=== PATIENT | male | born 1955 | race Caucasian/White ===

== ENCOUNTER 2022-05-15 20:49 | Emergency (ER) | payer MEDICARE, BC, SELFPAY ==
[2022-05-15 21:28] VITALS: BP 147/88; PULSE 92; RESP 20; TEMP 36.1; O2SAT 94; BMI 27.3
[2022-05-15 22:48] VITALS: BP 138/93; PULSE 86; RESP 20; O2SAT 94
--- NOTE | 2022-05-15 23:07 | CRLHL7_ITS ---
For Patients: As a result of the Century Cures Act, medical imaging exams and procedure reports are released immediately into your electronic medical record. You may view this report before your referring provider. If you have questions, please contact your health care provider. INDICATION: Diffuse abdominal pain TECHNIQUE: CT abdomen and pelvis acquired with 93 cc Isovue 370 IV contrast. COMPARISON: None FINDINGS: Lower chest: Mitral annular calcification. Liver: Hepatic steatosis. Spleen: Unremarkable. Pancreas: Unremarkable. Gallbladder and bile ducts: Unremarkable. Adrenal glands: Unremarkable. Kidneys: 4 mm nonobstructive right renal stone. GI tract: Unremarkable. Appendix is normal. Vascular structures: Aortoiliac calcifications. Lymph nodes: Unremarkable. Miscellaneous: Unremarkable. No free air or significant free fluid. Pelvic Organs: Unremarkable. Bones: Unremarkable for age. IMPRESSION: No acute intra-abdominal process. Hepatic steatosis. Nonobstructive right renal stone. Please note that all CT scans at this facility use dose modulation, iterative reconstruction, and/or weight-based dosing when appropriate to reduce radiation dose to as low as reasonably achievable. Dictated by Hilaria Mujica MD @ 05/16/2022 1:37:08 AM (Electronically Signed)
[2022-05-15 23:27] LABS: Basophils Absolute Auto 0.02 K/uL (0.00-0.30); Basophils Percent Auto 0.3 % (0.0-3.0); Eosinophils Absolute Auto 0.29 K/uL (0.00-0.50); Eosinophils Percent Auto 4.1 % (0.0-7.0); Hematocrit 39.4 % (37.0-53.0); Hemoglobin* 14.3 gm/dL (13.5-17.5); Lymphocytes Absolute Auto 2.43 K/uL (0.90-2.90); Lymphocytes Percent Auto 34.5 % (20-44); Mean Corpuscular HGB Conc 36 gm/dL (32-36); Mean Corpuscular Hemoglobin 33 pg (26-34); Mean Corpuscular Volume 90 fL (80-100); Monocytes Percent Auto 8.9 % (0.0-11.0); Neutrophils Absolute Auto 3.67 K/uL (1.7-7.0); Neutrophils Percent Auto 52.2 % (42.0-72.0); Platelet Count* 261 K/uL (140-440); RDW Coefficient of Variation % 12.4 % (11.5-15.5); Red Blood Count 4.37 m/uL (4.30-5.90); White Blood Count* 7.04 K/uL (4.50-11.00)
[2022-05-15 23:29] LABS: Slide Review Reflex No
[2022-05-15 23:44] LABS: Albumin* 4.3 g/dL (3.3-5.0); Chloride* 104 mmol/L (96-114)
[2022-05-15 23:45] LABS: Sodium* 138 mmol/L (135-149)
[2022-05-15 23:47] LABS: Alkaline Phosphatase* 78 U/L (40-150); Aspartate Amino Transferase* 26 U/L (12-35); Bilirubin Direct* 0.2 mg/dL (0.0-0.5); Bilirubin Total* 0.8 mg/dL (0.1-1.5); Blood Urea Nitrogen* 11 mg/dL (7-30); Carbon Dioxide* 27 mmol/L (20-32); Creatinine* 0.8 mg/dL (0.5-1.5); Estimated Glomerular Filt Rate 96 ml/min
[2022-05-15 23:48] LABS: Alanine Aminotransferase* 22 U/L (4-50); Calcium* 9.3 mg/dL (8.4-10.6); Glucose* 103 mg/dL (60-115); Lipase* 81 U/L (23-300)
[2022-05-15 23:50] LABS: C Reactive Protein* 0.6 mg/dL (0.5-1.0)
--- NOTE | 2022-05-15 23:51 | ED_ITS ---
HPI - Abdominal Pain General Chief Complaint: Abdominal Pain <Jocelynn Hall MD - Last Filed: 05/16/22 00:08> Stated Complaint: abdominal pain <Jocelynn Hall MD - Last Filed: 05/16/22 00:08> Time Seen by Provider: 05/15/22 22:30 <Jocelynn Hall MD - Last Filed: 05/16/22 00:08> Source: patient <Jocelynn Hall MD - Last Filed: 05/16/22 00:08> Mode of arrival: ambulatory <Jocelynn Hall MD - Last Filed: 05/16/22 00:08> Limitations: no limitations <Jocelynn Hall MD - Last Filed: 05/16/22 00:08> History of Present Illness HPI narrative: 66-year-old male coming in today complaining of abdominal pain which she attributes to constipation. He says he has diffuse abdominal discomfort across the entire abdomen that is mild but certainly has been bothering him for about 2 weeks. He is quite concerned because he states that he only has small pebble like bowel movements and has not had a significant bowel movement in 2 weeks time. He states he is passing less gas than usual. He has been eating less than usual also. He denies any weight loss, nausea or vomiting. There is no blood in his stool. He denies any urinary symptoms. He denies any fatigue or weakness. He states that he was seen at the [facility] 4 days ago when he was prescribed GoLYTELY. He states that he has been taking 400 mL of GoLYTELY daily and that has not changed his bowel movements at all. He then did an enema today and had no output. He is concerned about his bowels. Past medical history significant for depression, hypertension. He denies any intra-abdominal operations in the past. He does have a history of constipation, but states he has never been this bad before. <Jocelynn Hall MD - Last Filed: 05/16/22 00:08> Related Data Home Medications: Home Medications Medication Instructions Recorded Confirmed amitriptyline 50 mg tablet mg 05/15/22 amlodipine 10 mg tablet mg 05/15/22 hydrochlorothiazide 25 mg tablet mg 05/15/22 metoprolol succinate 100 mg mg PO 05/15/22 tablet,extended release 24 hr sertraline 100 mg tablet mg 05/15/22 <Jocelynn Hall MD - Last Filed: 05/16/22 00:08> Allergies/Adverse Reactions: Allergies Allergy/AdvReac Type Severity Reaction Status Date / Time amoxicillin Allergy Verified 05/16/22 00:01 <Jocelynn Hall MD - Last Filed: 05/16/22 00:08> Review of Systems Status of ROS Reports: 10 or more systems reviewed and unremarkable except as noted in History and below <Jocelynn Hall MD - Last Filed: 05/16/22 00:08> [facility] Social History: Social History Smoking Status: Never smoker Do you use any of these nicotine containing products: None Second hand tobacco smoke exposure: No How often do you have a drink containing alcohol: 2-4 times a month How many standard drinks containing alcohol do you have on a typical day: 1 or 2 How often do you have six or more drinks on one occasion: Never AUDIT-C Alcohol total score: 2 Non-prescribed substance use: denies use service: No <Jocelynn Hall MD - Last Filed: 05/16/22 00:08> Exam Narrative: Exam Narrative: Well-nourished well-developed patient in no acute distress. Alert and oriented. Answers questions appropriately. Mood and affect are appropriate. Thoughts are goal oriented and rational. No tangential or magical thinking noted. Patient speaks in full sentences without needing to catch their breath. HEENT: Normocephalic atraumatic. Pupils are equally round reactive to light. Extraocular muscles are intact. Conjunctivae are moist without any icterus noted. Moist mucous membranes. Posterior pharynx is normal. Neck is soft. Cardiovascular: Heart is regular rate and rhythm S1 and S2 are present without any murmurs. Lungs: Clear to auscultation bilaterally no wheezes rhonchi or rales are appreciated. Patient takes deep breaths without any discomfort. Abdomen: Soft and nondistended with normal bowel sounds. No guarding or re bound. He has minimal discomfort throughout. Negative Rich sign. No specific area hurts more than another. Extremities: Bilateral lower extremities are without edema. Skin: Well perfused without any obvious rashes. <Jocelynn Hall MD - Last Filed: 05/16/22 00:08> Const: Vital Signs, click to edit/add: Vital Signs - 24 hr 05/15/22 21:28 05/15/22 22:48 05/16/22 01:47 Temperature 97 F L Pulse Rate [Pulse Oximeter] 92 86 89 Respiratory Rate 20 20 16 Blood Pressure [Ri ght Upper Arm] 147/88 H 138/93 H 130/87 Pulse Oximetry 94 94 98 Oxygen Delivery Me thod Room Air Room Air Room Air <Jocelynn Hall MD - Last Filed: 05/16/22 00:08> Vital Signs, click to edit/add: Vital Signs - 24 hr 05/15/22 21:28 05/15/22 22:48 05/16/22 01:47 Temperature 97 F L Pulse Rate [Pulse Oximeter] 92 86 89 Respiratory Rate 20 20 16 Blood Pressure [Ri ght Upper Arm] 147/88 H 138/93 H 130/87 Pulse Oximetry 94 94 98 Oxygen Delivery Me thod Room Air Room Air Room Air <Adrian Galvin MD - Last Filed: 05/16/22 16:51> Course Course Hospital Course: IV was established and labs were drawn. Abdominal CT scan was ordered given the patient's nondescript discomfort. Care transferred to oncoming provider. <Jocelynn Hall MD - Last Filed: 05/16/22 00:08> Vital Signs Vital signs: Initial Vital Signs Temperature 97 F L 05/15/22 21:28 Temperature Source Temporal Artery Scan 05/15/22 21:28 Pulse Rate 92 05/15/22 21:28 Pulse Rhythm 05/15/22 21:28 Pulse Strength 3+ Normal 05/15/22 21:28 Respiratory Rate 20 05/15/22 21:28 Blood Pressure 147/88 H 05/15/22 21:28 Blood Pressure Mean 107 05/15/22 21:28 Blood Pressure Position Sitting 05/15/22 21:28 Pulse Oximetry 94 05/15/22 21:28 Oxygen Delivery Method 05/15/22 21:28 Vital Signs Temperature 97 F L 05/15/22 21:28 Pulse Rate 92 05/15/22 21:28 Respiratory Rate 20 05/15/22 21:28 Blood Pressure 147/88 H 05/15/22 21:28 Pulse Oximetry 94 05/15/22 21:28 Oxygen Delivery Method 05/15/22 21:28 Temperature 97 F L 05/15/22 21:28 Pulse Rate 89 05/16/22 01:47 Respiratory Rate 16 05/16/22 01:47 Blood Pressure 130/87 05/16/22 01:47 Pulse Oximetry 98 05/16/22 01:47 Oxygen Delivery Method 05/16/22 01:47 <Jocelynn Hall MD - Last Filed: 05/16/22 00:08> Initial Vital Signs Temperature 97 F L 05/15/22 21:28 Temperature Source Temporal Artery Scan 05/15/22 21:28 Pulse Rate 92 05/15/22 21:28 Pulse Rhythm 05/15/22 21:28 Pulse Strength 3+ Normal 05/15/22 21:28 Respiratory Rate 20 05/15/22 21:28 Blood Pressure 147/88 H 05/15/22 21:28 Blood Pressure Mean 107 05/15/22 21:28 Blood Pressure Position Sitting 05/15/22 21:28 Pulse Oximetry 94 05/15/22 21:28 Oxygen Delivery Method 05/15/22 21:28 Vital Signs Temperature 97 F L 05/15/22 21:28 Pulse Rate 92 05/15/22 21:28 Respiratory Rate 20 05/15/22 21:28 Blood Pressure 147/88 H 05/15/22 21:28 Pulse Oximetry 94 05/15/22 21:28 Oxygen Delivery Method 05/15/22 21:28 Temperature 97 F L 05/15/22 21:28 Pulse Rate 89 05/16/22 01:47 Respiratory Rate 16 05/16/22 01:47 Blood Pressure 130/87 05/16/22 01:47 Pulse Oximetry 98 05/16/22 01:47 Oxygen Delivery Method 05/16/22 01:47 <Adrian Galvin MD - Last Filed: 05/16/22 16:51> MDM - Abdominal Pain MDM Narrative Medical decision making narrative: received Mr. Santa in change of shift pending labs and abd imaging. I reviewed CT abd pelvis and can appreciate some bowel gas. Also noted is 4mm renal stone. No excessive stool matter, mass effect of inflammatory changes. labs sig for K+ 2.9 -- med effect? <Adrian Galvin MD - Last Filed: 05/16/22 16:51> Medical Records Attestation: I reviewed the patient's medical records. <Adrian Galvin MD - Last Filed: 05/16/22 16:51> Lab Data Attestation: I reviewed the patient's lab results. <Adrian Galvin MD - Last Filed: 05/16/22 16:51> Labs: Lab Results 05/15/22 05/15/22 05/15/22 Range/Units 00:08 23:18 23:18 WBC 7.04 (4.50-11.00) K/uL RBC 4.37 (4.30-5.90) m/uL Hgb 14.3 (13.5-17.5) gm/dL Hct 39.4 (37.0-53.0) % MCV 90 (80-100) fL MCH 33 (26-34) pg MCHC 36 (32-36) gm/dL RDW Coeff of Pushpa 12.4 (11.5-15.5) % Plt Count 261 (140-440) K/uL Neut % (Auto) 52.2 (42.0-72.0) % Lymph % (Auto) 34.5 (20-44) % [place] % (Auto) 8.9 (0.0-11.0) % Eos % (Auto) 4.1 (0.0-7.0) % Baso % (Auto) 0.3 (0.0-3.0) % Neut # (Auto) 3.67 (1.7-7.0) K/uL Lymph # (Auto) 2.43 (0.90-2.90) K/uL [place] # (Auto) 0.60 (0.00-0.90) K/UL Eos # (Auto) 0.29 (0.00-0.50) K/uL Baso # (Auto) 0.02 (0.00-0.30) K/uL ESR 11 (2-15) mm/hr Sodium (135-149) mmol/L Potassium (3.6-5.1) mmol/L Chloride (96-114) mmol/L Carbon Dioxide (20-32) mmol/L BUN (7-30) mg/dL Creatinine (0.5-1.5) mg/dL Estimated Creat Clear Estimated GFR ml/min Glucose (60-115) mg/dL Lactate (0.5-1.9) mmol/L Calcium (8.4-10.6) mg/dL Magnesium (1.5-2.6) mg/dL Total Bilirubin (0.1-1.5) mg/dL Direct Bilirubin (0.0-0.5) mg/dL AST (12-35) U/L ALT (4-50) U/L Alkaline Phosphatase (40-150) U/L C-Reactive Protein (0.5-1.0) mg/dL Total Protein (6.0-8.3) g/dL Albumin (3.3-5.0) g/dL Lipase (23-300) U/L TSH (0.270-4.20) uIU/mL Urine Color Yellow (Yellow) Urine Appearance Clear (Clear) Urine pH 7.0 (5.0-8.5) Ur Specific [place] 1.010 (1.000-1.030) Urine Protein Negative (Negative) Urine Glucose (UA) Negative (Negative) Urine Ketones Negative (Negative) Urine Blood Negative (Negative) Urine Nitrite Negative (Negative) Urine Bilirubin Negative (Negative) Urine Urobilinogen 0.2 (0.2-1.0) Ur Leukocyte Esterase Negative (Negative) Urine RBC 0-2 (0-2) Urine WBC 0-2 (0-5) Ur Squamous Epith Cells None (None-Few) Urine Bacteria None (None) 05/15/22 05/15/22 05/15/22 Range/Units 23:18 23:18 23:18 WBC (4.50-11.00) K/uL RBC (4.30-5.90) m/uL Hgb (13.5-17.5) gm/dL Hct (37.0-53.0) % MCV (80-100) fL MCH (26-34) pg MCHC (32-36) gm/dL RDW Coeff of Pushpa (11.5-15.5) % Plt Count (140-440) K/uL Neut % (Auto) (42.0-72.0) % Lymph % (Auto) (20-44) % [place] % (Auto) (0.0-11.0) % Eos % (Auto) (0.0-7.0) % Baso % (Auto) (0.0-3.0) % Neut # (Auto) (1.7-7.0) K/uL Lymph # (Auto) (0.90-2.90) K/uL [place] # (Auto) (0.00-0.90) K/UL Eos # (Auto) (0.00-0.50) K/uL Baso # (Auto) (0.00-0.30) K/uL ESR (2-15) mm/hr Sodium 138 (135-149) mmol/L Potassium 2.9 L* (3.6-5.1) mmol/L Chloride 104 (96-114) mmol/L Carbon Dioxide 27 (20-32) mmol/L BUN 11 (7-30) mg/dL Creatinine 0.8 (0.5-1.5) mg/dL Estimated Creat Clear 73.00 Estimated GFR 96 ml/min Glucose 103 (60-115) mg/dL Lactate 1.0 (0.5-1.9) mmol/L Calcium 9.3 (8.4-10.6) mg/dL Magnesium 2.2 (1.5-2.6) mg/dL Total Bilirubin 0.8 (0.1-1.5) mg/dL Direct Bilirubin 0.2 (0.0-0.5) mg/dL AST 26 (12-35) U/L ALT 22 (4-50) U/L Alkaline Phosphatase 78 (40-150) U/L C-Reactive Protein 0.6 (0.5-1.0) mg/dL Total Protein 7.0 (6.0-8.3) g/dL Albumin 4.3 (3.3-5.0) g/dL Lipase 81 (23-300) U/L TSH 2.150 (0.270-4.20) uIU/mL Urine Color (Yellow) Urine Appearance (Clear) Urine pH (5.0-8.5) Ur Specific [place] (1.000-1.030) Urine Protein (Negative) Urine Glucose (UA) (Negative) Urine Ketones (Negative) Urine Blood (Negative) Urine Nitrite (Negative) Urine Bilirubin (Negative) Urine Urobilinogen (0.2-1.0) Ur Leukocyte Esterase (Negative) Urine RBC (0-2) Urine WBC (0-5) Ur Squamous Epith Cells (None-Few) Urine Bacteria (None) <Jocelynn Hall MD - Last Filed: 05/16/22 00:08> Lab Results 05/15/22 05/15/22 05/15/22 Range/Units 00:08 23:18 23:18 WBC 7.04 (4.50-11.00) K/uL RBC 4.37 (4.30-5.90) m/uL Hgb 14.3 (13.5-17.5) gm/dL Hct 39.4 (37.0-53.0) % MCV 90 (80-100) fL MCH 33 (26-34) pg MCHC 36 (32-36) gm/dL RDW Coeff of Pushpa 12.4 (11.5-15.5) % Plt Count 261 (140-440) K/uL Neut % (Auto) 52.2 (42.0-72.0) % Lymph % (Auto) 34.5 (20-44) % [place] % (Auto) 8.9 (0.0-11.0) % Eos % (Auto) 4.1 (0.0-7.0) % Baso % (Auto) 0.3 (0.0-3.0) % Neut # (Auto) 3.67 (1.7-7.0) K/uL Lymph # (Auto) 2.43 (0.90-2.90) K/uL [place] # (Auto) 0.60 (0.00-0.90) K/UL Eos # (Auto) 0.29 (0.00-0.50) K/uL Baso # (Auto) 0.02 (0.00-0.30) K/uL ESR 11 (2-15) mm/hr Sodium (135-149) mmol/L Potassium (3.6-5.1) mmol/L Chloride (96-114) mmol/L Carbon Dioxide (20-32) mmol/L BUN (7-30) mg/dL Creatinine (0.5-1.5) mg/dL Estimated Creat Clear Estimated GFR ml/min Glucose (60-115) mg/dL Lactate (0.5-1.9) mmol/L Calcium (8.4-10.6) mg/dL Magnesium (1.5-2.6) mg/dL Total Bilirubin (0.1-1.5) mg/dL Direct Bilirubin (0.0-0.5) mg/dL AST (12-35) U/L ALT (4-50) U/L Alkaline Phosphatase (40-150) U/L C-Reactive Protein (0.5-1.0) mg/dL Total Protein (6.0-8.3) g/dL Albumin (3.3-5.0) g/dL Lipase (23-300) U/L TSH (0.270-4.20) uIU/mL Urine Color Yellow (Yellow) Urine Appearance Clear (Clear) Urine pH 7.0 (5.0-8.5) Ur Specific [place] 1.010 (1.000-1.030) Urine Protein Negative (Negative) Urine Glucose (UA) Negative (Negative) Urine Ketones Negative (Negative) Urine Blood Negative (Negative) Urine Nitrite Negative (Negative) Urine Bilirubin Negative (Negative) Urine Urobilinogen 0.2 (0.2-1.0) Ur Leukocyte Esterase Negative (Negative) Urine RBC 0-2 (0-2) Urine WBC 0-2 (0-5) Ur Squamous Epith Cells None (None-Few) Urine Bacteria None (None) 05/15/22 05/15/22 05/15/22 Range/Units 23:18 23:18 23:18 WBC (4.50-11.00) K/uL RBC (4.30-5.90) m/uL Hgb (13.5-17.5) gm/dL Hct (37.0-53.0) % MCV (80-100) fL MCH (26-34) pg MCHC (32-36) gm/dL RDW Coeff of Pushpa (11.5-15.5) % Plt Count (140-440) K/uL Neut % (Auto) (42.0-72.0) % Lymph % (Auto) (20-44) % [place] % (Auto) (0.0-11.0) % Eos % (Auto) (0.0-7.0) % Baso % (Auto) (0.0-3.0) % Neut # (Auto) (1.7-7.0) K/uL Lymph # (Auto) (0.90-2.90) K/uL [place] # (Auto) (0.00-0.90) K/UL Eos # (Auto) (0.00-0.50) K/uL Baso # (Auto) (0.00-0.30) K/uL ESR (2-15) mm/hr Sodium 138 (135-149) mmol/L Potassium 2.9 L* (3.6-5.1) mmol/L Chloride 104 (96-114) mmol/L Carbon Dioxide 27 (20-32) mmol/L BUN 11 (7-30) mg/dL Creatinine 0.8 (0.5-1.5) mg/dL Estimated Creat Clear 73.00 Estimated GFR 96 ml/min Glucose 103 (60-115) mg/dL Lactate 1.0 (0.5-1.9) mmol/L Calcium 9.3 (8.4-10.6) mg/dL Magnesium 2.2 (1.5-2.6) mg/dL Total Bilirubin 0.8 (0.1-1.5) mg/dL Direct Bilirubin 0.2 (0.0-0.5) mg/dL AST 26 (12-35) U/L ALT 22 (4-50) U/L Alkaline Phosphatase 78 (40-150) U/L C-Reactive Protein 0.6 (0.5-1.0) mg/dL Total Protein 7.0 (6.0-8.3) g/dL Albumin 4.3 (3.3-5.0) g/dL Lipase 81 (23-300) U/L TSH 2.150 (0.270-4.20) uIU/mL Urine Color (Yellow) Urine Appearance (Clear) Urine pH (5.0-8.5) Ur Specific [place] (1.000-1.030) Urine Protein (Negative) Urine Glucose (UA) (Negative) Urine Ketones (Negative) Urine Blood (Negative) Urine Nitrite (Negative) Urine Bilirubin (Negative) Urine Urobilinogen (0.2-1.0) Ur Leukocyte Esterase (Negative) Urine RBC (0-2) Urine WBC (0-5) Ur Squamous Epith Cells (None-Few) Urine Bacteria (None) <Adrian Galvin MD - Last Filed: 05/16/22 16:51> Discharge Plan Discharge Clinical Impression: Abdominal discomfort, Hypokalemia <Jocelynn Hall MD - Last Filed: 05/16/22 00:08> Patient Disposition: Home w/ Parent or Adult <Jocelynn Hall MD - Last Filed: 05/16/22 00:08> Condition: Stable <Jocelynn Hall MD - Last Filed: 05/16/22 00:08> Instructions: Potassium Content of Foods List (ED) <Jocelynn Hall MD - Last Filed: 05/16/22 00:08> Additional Instructions: I can not appreciate that there is much stool to clear out at this point. For now I would try to leave it be. Avoid straining at bathrooming. Continue with good dietary measures. Be sure to drink 2-3 L of water daily. Try to get little heart pumping exercise in daily. Might be helpful to take a few weeks of daily dosed probiotics? I would follow up next week to recheck your potassium level. At least 1 of your medications may be contributing. <Jocelynn Hall MD - Last Filed: 05/16/22 00:08> Prescriptions: No Action metoprolol succinate 100 mg tablet extended release 24 hr PO Label Comments: TAKE 1 TABLET BY MOUTH EVERY DAY sertraline 100 mg tablet Label Comments: TAKE 2 TABLETS BY MOUTH EVERY DAY amitriptyline 50 mg tablet Label Comments: TAKE 1 TABLET BY MOUTH AT BEDTIME amlodipine 10 mg tablet Label Comments: TAKE 1 TABLET BY MOUTH EVERY DAY hydrochlorothiazide 25 mg tablet Label Comments: TAKE 1 TABLET BY MOUTH EVERY DAY <Joeclynn Hall MD - Last Filed: 05/16/22 00:08> Stand Alone Forms: [facility] Info Instructions <Jocelynn Hall MD - Last Filed: 05/16/22 00:08>
[2022-05-15 23:52] LABS: Potassium* 2.9 mmol/L (3.6-5.1)
[2022-05-16 00:07] LABS: Erythrocyte SedimentationRate* 11 mm/hr (2-15)
[2022-05-16 00:14] LABS: Appearance Urine Clear (Clear); Bilirubin Urine Negative (Negative); Blood Urine Negative (Negative); Color Urine Yellow (Yellow); Glucose Urine Negative (Negative); Ketones Urine Negative (Negative); Leukocyte Esterase Urine Negative (Negative); Nitrite Urine Negative (Negative); Protein Urine Negative (Negative); Urobilinogen Urine 0.2 (0.2-1.0)
[2022-05-16 00:19] LABS: RBC Urine 0-2 (0-2); WBC Urine 0-2 (0-5)
[2022-05-16 01:12] LABS: Magnesium* 2.2 mg/dL (1.5-2.6)
--- NOTE | 2022-05-16 01:13 | ED.NURSE ---
has been up to br to void 2 times since arrival. ua in lab. betsy at bs.
[2022-05-16 01:47] VITALS: BP 130/87; PULSE 89; RESP 16; O2SAT 98
[2022-05-16] MEDS: POTASSIUM BICARB 25 MEQ EFFERVESCENT TAB 50 MEQ PO (01:50)
== END 2022-05-16 02:39 | disposition home or self-care (01) ==
LOC: ED 05-16 02:37
PROVIDERS: Family Medicine; Emergency Provider Family Medicine; PCP Family Medicine
DX: R10.9 Unspecified abdominal pain (principal); E87.6 Hypokalemia
CPT/HCPCS: 36415; 74177; 80048; 80076; 81001; 83605; 83690; 83735; 84443; 85025; 85651; 86140; 87086; 99283; 99284; A9270; Q9967